=== PATIENT | female | born 1955 | race Caucasian/White ===

== ENCOUNTER → 2016-09-12 | Outpatient (CLI) | payer BC ==
--- NOTE | 2016-09-12 08:38 | BD ---
EXAMINATION TYPE: MG DEXA axial skeleton. DATE OF EXAM: 09/12/2016 COMPARISON: Previous study dated 07/02/2014. CLINICAL HISTORY: Postmenopausal female. Height: 63.2 IN Weight: 197 LBS FRAX RISK QUESTIONS: Alcohol (3 or more units per day): NO Family History (Parent hip fracture): NO Glucocorticoids (More than 3mos): NO (Ex: prednisone, prednisolone, methylprednisolone, dexamethasone, and hydrocortisone). History of Fracture in Adulthood: NO Secondary Osteoporosis: 1. Type 1 Diabetes: NO 2. Hyperthyroidism: NO 3. Menopause before 45: NO 4. Malnutrition: NO 5. Chronic liver disease: NO Rheumatoid Arthritis: NO Current Tobacco Use: NO RISK FACTORS HISTORY OF: Active: YES Diet low in dairy products/other sources of calcium: YES Postmenopausal woman: AGE 49 MEDICATIONS: Thyroid Medications: YES Which medication: Levothyroxine How Lon+ YRS Additional Medications: CALCIUM, VIT D, LEVOTHYROXINE, EXAM MEASUREMENTS: Bone mineral densitometry was performed using the [employer] System. Bone mineral density as measured about the Lumbar spine is: ----- L1-L4(G/cm2): 1.136 T Score Values are as follows: ----- L2: -0.9 ----- L3: -0.3 ----- L4: -0.7 ----- L1-L4: -0.4 Bone mineral density has: Decreased -2.5% since study of: 07/02/2014 Bone mineral density about the R hip (g/cm2): 0.905 Bone mineral density about the L hip (g/cm2): 0.829 T Score values are as follows: -----R Neck: -1.0 -----L Neck: -1.5 -----R Total: -0.8 -----L Total: -1.3 Bone mineral density has: Decreased -2.0% since study of: 07/02/2014 IMPRESSION: OSTEOPENIA. Major osteoporotic fracture risk: 7.9%. Hip fracture risk: 0.7%. NOTE: T-SCORE=SD OF THE YOUNG ADULT MEAN.
--- NOTE | 2016-09-13 09:38 | MM ---
Reason for exam: screening (asymptomatic). Last mammogram was performed 2 years and 2 months ago. History: Patient is postmenopausal. Benign left mammotome panel of the left breast, June 05, 2012. Took estrogen for 2 months beginning at age 53. Took progesterone for 2 months beginning at age 53. Physical Findings: A clinical breast exam by your physician is recommended on an annual basis and results should be correlated with mammographic findings. MG Screening Mammo w CAD Bilateral CC and MLO view(s) were taken. Prior study comparison: July 02, 2014, bilateral MG screening mammo w CAD. June 23, 2013, bilateral digital screening mammo w/CAD. The breast tissue is heterogeneously dense. This may lower the sensitivity of mammography. Finding: There are a few typically benign round calcifications in both breasts. Previous mammotome biopsy in the left breast. There is no discrete abnormality. ASSESSMENT: Benign, BI-RAD 2 RECOMMENDATION: Routine screening mammogram of both breasts in 1 year.
== END | disposition home or self-care (01) ==
LOC: RADMAMWWP 07:37
PROVIDERS: ATTEND Obstetrics & Gynecology
DX: Z12.31 Encounter for screening mammogram for malignant neoplasm of breast (principal); M85.80 Other specified disorders of bone density and structure, unspecified site
CPT/HCPCS: 77080; G0202

== ENCOUNTER 2017-06-21 10:49 | Day surgery (SDC) | payer BC ==
[2017-06-19 16:08] VITALS: BMI 33.5
[~2017-06-21 10:49] MED LIST: LACTATED RINGERS 1,000 ML IV SCH; LIDOCAINE 1% 20 ML VIAL (10MG/ML) FOR IV START INTRADERMA PRN
[2017-06-21 12:23] VITALS: RESP 16; TEMP 98.6
[2017-06-21] MEDS ORDERED: PROPOFOL 10 MG/ML 20 ML VIAL IV ONE (13:06)
--- NOTE | 2017-06-21 13:22 | P.PCN ---
Date of Procedure: 06/21/17 Procedure(s) Performed: BRIEF HISTORY: Patient is a 61-year-old pleasant white female, scheduled for an elective colonoscopy as a part of screening for colorectal neoplasia. PROCEDURE PERFORMED: Colonoscopy. PREOPERATIVE DIAGNOSIS: Screening for colon cancer. IV sedation per Anesthesia. PROCEDURE: After informed consent was obtained, the patient, was brought into the endoscopy unit. IV sedation was administered by Anesthesia under continuous monitoring. Digital rectal examination was normal. Initially the Olympus CF- 160 flexible video colonoscope was then inserted in the rectum, gradually advanced into the cecum without any difficulty. Careful examination was performed as the scope was gradually being withdrawn. Ileocecal valve and the appendiceal orifice were visualized and appeared normal. Prep was excellent. Mucosa of the cecum, ascending colon, transverse colon, descending colon, sigmoid colon, and rectum appeared normal. scattered ascending diverticulosis seen. Retroflexion was performed in the rectum and no lesions were seen. The patient tolerated the procedure well. IMPRESSION: Normal-appearing colon from rectum to cecum with no evidence of colorectal neoplasia . Scattered left-sided diverticulosis. RECOMMENDATIONS: Findings of this examination were discussed with the patient as well as her family. She was advised to have a repeat screening colonoscopy in 10 years.
[2017-06-21 13:42] VITALS: BP 105/68; PULSE 75
== END 2017-06-21 14:23 | disposition home or self-care (01) ==
LOC: ORWHC2ENDO 10:49
PROVIDERS: ATTEND Internal Medicine Gastroenterology
DX: Z12.11 Encounter for screening for malignant neoplasm of colon (principal); K57.30 Diverticulosis of large intestine without perforation or abscess without bleeding; E07.9 Disorder of thyroid, unspecified; Z79.899 Other long term (current) drug therapy
CPT/HCPCS: 45378; J2704

== ENCOUNTER → 2017-11-12 | Outpatient (CLI) | payer BC ==
--- NOTE | 2017-11-13 14:04 | MM ---
Reason for exam: screening (asymptomatic). Last mammogram was performed 1 year and 2 months ago. History: Patient is postmenopausal. Benign left mammotome panel of the left breast, June 05, 2012. Took estrogen for 2 months beginning at age 53. Took progesterone for 2 months beginning at age 53. Physical Findings: A clinical breast exam by your physician is recommended on an annual basis and results should be correlated with mammographic findings. MG 3D Screening Mammo W/Cad Bilateral CC and MLO view(s) were taken. Prior study comparison: September 12, 2016, bilateral MG screening mammo w CAD. July 02, 2014, bilateral MG screening mammo w CAD. There are scattered fibroglandular densities. Asymmetric breast tissue in the right breast, 9cm from nipple. This finding is changed when compared with previous exams. ASSESSMENT: Incomplete: need additional imaging evaluation, BI-RAD 0 RECOMMENDATION: Ultrasound of the right breast. [facility] will attempt to contact patient to return for ultrasound.
== END | disposition home or self-care (01) ==
LOC: RADMAMWWP 11:02
PROVIDERS: ATTEND Obstetrics & Gynecology
DX: Z12.31 Encounter for screening mammogram for malignant neoplasm of breast (principal)
CPT/HCPCS: 77063; 77067

== ENCOUNTER → 2017-11-16 | Outpatient (CLI) | payer BC ==
--- NOTE | 2017-11-19 08:40 | USB ---
Reason for exam: additional evaluation requested from abnormal screening. History: Patient is postmenopausal. Benign left mammotome panel of the left breast, June 05, 2012. Took estrogen for 2 months beginning at age 53. Took progesterone for 2 months beginning at age 53. Physical Findings: Nurse did not find any significant physical abnormalities on exam. US Breast Workup RT Right complete breast ultrasound includes all four quadrants, the retroareolar region and axilla. Finding demonstrates a 0.6 x 0.3 x 0.8cm hypoechoic lesion at 11 o'clock. These results were verbally communicated with the patient and result sheet given to the patient on 11/16/17. ASSESSMENT: Incomplete: need additional imaging evaluation, BI-RAD 0 RECOMMENDATION: Special view mammogram of the right breast.
--- NOTE | 2017-11-19 08:41 | MM ---
Reason for exam: additional evaluation requested from abnormal screening. Last mammogram was performed less than 1 month ago. History: Patient is postmenopausal. Benign left mammotome panel of the left breast, June 05, 2012. Took estrogen for 2 months beginning at age 53. Took progesterone for 2 months beginning at age 53. MG Work Up Mamm w CAD RT Spot compression CC, spot compression MLO, and LM view(s) were taken of the right breast. Prior study comparison: November 12, 2017, bilateral MG 3d screening mammo w/cad. September 12, 2016, bilateral MG screening mammo w CAD. Nodular density persists. These results were verbally communicated with the patient and result sheet given to the patient on 11/16/17. ASSESSMENT: Suspicious, BI-RAD 4 RECOMMENDATION: Stereotactic core biopsy of the right breast. Called Dr. Mckeon with mammographic findings and has scheduled an appointment for the patient for 11/28/17 at 3:[address] Garcia. PRELIMINARY REPORT CALLED AND FAXED TO DR. GARCIA ON 11/19/17.
== END | disposition home or self-care (01) ==
LOC: RADUSWWP 10:59
PROVIDERS: ATTEND Obstetrics & Gynecology
DX: R92.8 Other abnormal and inconclusive findings on diagnostic imaging of breast (principal)
CPT/HCPCS: 77065

== ENCOUNTER → 2017-12-13 | Day surgery (SDC) | payer BC ==
[2017-12-13 07:23] VITALS: BP 142/93; PULSE 81; RESP 16; TEMP 98; BMI 32.5
--- NOTE | 2017-12-13 09:29 | MM ---
EXAMINATION TYPE: MG discontinued stereo core RT DATE OF EXAM: 12/13/2017 COMPARISON: Mammogram and ultrasound November 16, 2017 and older studies. CLINICAL HISTORY: Prior abnormal mammogram. TECHNIQUE: Stereotactic guided core biopsy of right breast. FINDINGS: The procedure of stereotactic guided core biopsy was explained to the patient. Benefits, a lternatives, and risks were discussed. An informed consent was then obtained. Multiple attempts were obtained to localize the area of concern posterior depth upper outer aspect. T here is an asymmetrically prominent tissue at this level on multiple prior studies, the symphysis siz ed Three-D MLO view is most suspicious without definitive lesion seen on tomographic images are addit ional spot views. There is inability to localize definitive lesion today to warrant sampling. Procedu re was canceled. Case was discussed with patient prior to and during attempted procedure. Patient was agreeable to can cellation and short-term follow-up. IMPRESSION: Canceled stereotactic guided core biopsy due to inability to localize a definitive lesion for sampling. BI-RADS 3 probable benign findings. Recommendation: Precautionary diagnostic 6 month follow-up right breast mammogram.
== END ==
LOC: RADMAMWWP 06:55
PROVIDERS: ATTEND Student in an Organized Health Care Education/Training Program
DX: N64.9 Disorder of breast, unspecified (principal)

== ENCOUNTER → 2018-04-26 | Outpatient (CLI) | payer BC ==
--- NOTE | 2018-04-26 12:48 | XR ---
EXAMINATION TYPE: XR chest 2V DATE OF EXAM: 04/26/2018 COMPARISON: NONE HISTORY: Upper respiratory infection and cough. TECHNIQUE: Frontal and lateral views of the chest are obtained. FINDINGS: There is no focal air space opacity, pleural effusion, or pneumothorax seen. The cardiac silhouette size is within normal limits. The osseous structures are intact. Cholecystectomy clips a re noted on lateral view. IMPRESSION: No suspicious acute pulmonary process.
== END | disposition home or self-care (01) ==
LOC: RADXRMAIN 12:12
PROVIDERS: ATTEND Internal Medicine Geriatric Medicine
DX: J06.9 Acute upper respiratory infection, unspecified (principal); R92.8 Other abnormal and inconclusive findings on diagnostic imaging of breast
CPT/HCPCS: 71046

== ENCOUNTER → 2019-01-23 | Outpatient (CLI) | payer BC ==
--- NOTE | 2019-01-24 07:53 | BD ---
EXAMINATION TYPE: Axial Bone Density DATE OF EXAM: 01/23/2019 COMPARISON: 2017 CLINICAL HISTORY: M 88.9 Height: 5 FT 2 1/2 IN Weight: 190 FRAX RISK QUESTIONS: History of Fracture in Adulthood: YES Secondary Osteoporosis: RISK FACTORS HISTORY OF: Surgery to Spine/Hip(right/left)/Wrist (right/left): CYST REMOVED RT WRIST When: EARLY 19 Active: SOMEWHAT Postmenopausal woman: AGE 49 MEDICATIONS: Thyroid Medications: YES Which medication: LEVOTHYROXINE How Long: APPROX 20 YEARS Additional Medications: LEVOTHYROXINE, Additional History: EXAM MEASUREMENTS: Bone mineral densitometry was performed using the [employer] System. Bone mineral density as measured about the Lumbar spine is: ----- L1-L4(G/cm2): 1.150 T Score Values are as follows: ----- L2: -0.9 ----- L3: 0.1 ----- L4: .07 ----- L1-L4: -0.3 Bone mineral density has: INCREASED 1.0% SINCE STUDY OF 2017 Bone mineral density about the R hip (g/cm2): 0.902 Bone mineral density about the L hip (g/cm2): 0.850 T Score values are as follows: -----R Neck: -1.0 -----L Neck: -1.4 -----R Total: -1.3 -----L Total: -1.4 Bone mineral density has: DECREASED -3.6 % SINCE STUDY OF 2016 IMPRESSION: Osteopenia (T Score between -2.5 and -1). There is slightly increased risk of fracture and the patient may be considered for treatment. Re-Screen 2-5 years. NOTE: T-SCORE=SD OF THE YOUNG ADULT MEAN.
--- NOTE | 2019-01-24 13:41 | MM ---
Reason for exam: screening (asymptomatic). Last mammogram was performed 1 year and 2 months ago. History: Patient is postmenopausal. MG discontinued stereo core RT of the right breast, December 13, 2017. Benign left mammotome panel of the left breast, June 05, 2012. Took estrogen for 2 months beginning at age 53. Took progesterone for 2 months beginning at age 53. Physical Findings: A clinical breast exam by your physician is recommended on an annual basis and results should be correlated with mammographic findings. MG 3D Screening Mammo W/Cad Bilateral CC and MLO view(s) were taken. Prior study comparison: November 16, 2017, right breast MG work up mamm w CAD RT. November 12, 2017, bilateral MG 3d screening mammo w/cad. No significant changes when compared with prior studies. ASSESSMENT: Benign, BI-RAD 2 RECOMMENDATION: Routine screening mammogram of both breasts in 1 year.
== END | disposition home or self-care (01) ==
LOC: RADMAMWWP 15:42
PROVIDERS: ATTEND Obstetrics & Gynecology
DX: Z12.31 Encounter for screening mammogram for malignant neoplasm of breast (principal); M85.80 Other specified disorders of bone density and structure, unspecified site
CPT/HCPCS: 77063; 77067; 77080

== ENCOUNTER → 2019-03-17 | Outpatient (CLI) | payer BC ==
[2019-03-17 11:34] LABS: T4, Free (Free Thyroxine) 1.2 ng/dL (0.80-1.80)
== END | disposition home or self-care (01) ==
LOC: LABWHC1 06:54
PROVIDERS: ATTEND Nurse Practitioner Family
DX: E03.9 Hypothyroidism, unspecified (principal)
CPT/HCPCS: 36415; 84439; 84443

== ENCOUNTER → 2019-03-17 | Outpatient (CLI) | payer BC ==
[2019-03-17 07:41] LABS: HGB 13.2 gm/dL (11.4-16.0); MCH 28.8 pg (25.0-35.0); MCV 87.2 fL (80.0-100.0); Mean Platelet Volume 6.9; Platelet Count 227 k/uL (150-450); RBC 4.59 m/uL (3.80-5.40); RDW 13.6 % (11.5-15.5); WBC 5.4 k/uL (3.8-10.6)
[2019-03-17 07:48] LABS: INR 0.9 (<1.2); Partial Thromboplastin Time 25.8 sec (22.0-30.0); Prothrombin Time 9.7 sec (9.0-12.0)
[2019-03-17 07:54] LABS: ALT 16 U/L (4-34); AST 23 U/L (14-36); African American GFR (CKD) >90 (>60 ml/min/1.73 sqM); Albumin 4.1 g/dL (3.5-5.0); Alkaline Phosphatase 79 U/L (38-126); Anion Gap 8 mmol/L; Blood Urea Nitrogen 13 mg/dL (7-17); Calcium 9.7 mg/dL (8.4-10.2); Carbon Dioxide 25 mmol/L (22-30); Chloride 109 mmol/L (98-107); Glucose 99 mg/dL (74-99); Non-African American GFR(CKD) >90 (>60 ml/min/1.73 sqM); Potassium 4.4 mmol/L (3.5-5.1); Sodium 142 mmol/L (137-145); Total Bilirubin 0.6 mg/dL (0.2-1.3)
[2019-03-17 08:15] LABS: Appearance,Urine Cloudy (Clear); Bacteria,Urine Occasional /hpf; Bilirubin,Urine Negative (Negative); Blood,Urine Small (Negative); Color,Urine Yellow; Glucose,Urine (UA) Negative (Negative); Ketones,Urine Negative (Negative); Leukocyte Esterase,Urine Negative (Negative); Mucus,Urine Many /hpf; Nitrite,Urine Negative (Negative); Protein,Urine Trace (Negative); RBC,Urine 1 /hpf (0-5); Specific Gravity,Urine 1.022 (1.001-1.035); Squamous Epithelial Cell,Urine 29 /hpf (0-4); Urobilinogen,Urine <2.0 mg/dL (<2.0); WBC,Urine 1 /hpf (0-5)
== END | disposition home or self-care (01) ==
LOC: LABPAT 06:48
PROVIDERS: ATTEND Orthopaedic Surgery Sports Medicine
DX: Z01.812 Encounter for preprocedural laboratory examination (principal)
CPT/HCPCS: 80053; 81001; 85027; 85610; 85730; 87070

== ENCOUNTER 2019-04-02 11:46 | Inpatient (IN) | payer BC ==
[2019-03-31 15:20] VITALS: BMI 33.3
[~2019-04-02 11:46] MED LIST changes: +ACETAMINOPHEN TAB 500 MG TAB PO ONE; +DEXAMETHASONE SOD PHOSPHATE 10 MG/ML 1 ML VIAL IV ONE; +HYDROmorphone 0.5 MG/0.5 ML SYRINGE IVP PRN; -LACTATED RINGERS 1,000 ML IV SCH; +MELOXICAM 7.5 MG TAB PO ONE; +ONDANSETRON 4 MG/2 ML VIAL IVP ONE; +TRANEXAMIC ACID 1,000 MG in SODIUM CHLORIDE 0.9% 100 ML IVPB ONE; +fentaNYL (PF) 50 MCG/ML 2 ML AMP IVP PRN
[2019-04-02] MEDS: LACTATED RINGERS 1,000 ML IV SCH ×2 (12:37→20:50)
[2019-04-02] MEDS: MIDAZOLAM 2 MG/2 ML VIAL IV PRN ×2 (12:37→13:14)
[2019-04-02] MEDS ORDERED: fentaNYL (PF) 50 MCG/ML 2 ML AMP IV ONE (13:20)
[2019-04-02] MEDS ORDERED: HYDROmorphone 0.5 MG/0.5 ML SYRINGE IVP PRN ×2 (13:36)
[2019-04-02] MEDS ORDERED: NALOXONE 0.4 MG/ML 1 ML VIAL IV PRN (13:36)
[2019-04-02] MEDS ORDERED: NA PHOS,M-B/NA PHOS,DI-BA 133 ML ENEMA RECTAL PRN (13:36)
[2019-04-02] MEDS ORDERED: DIAZEPAM 5 MG TAB PO PRN (13:36)
[2019-04-02] MEDS ORDERED: traMADol 50 MG TAB PO PRN (13:36)
[2019-04-02] MEDS ORDERED: TEMAZEPAM 15 MG CAP PO PRN (13:36)
[2019-04-02] MEDS ORDERED: BISACODYL 10 MG SUPP RECTAL PRN (13:36)
[2019-04-02] MEDS ORDERED: ACETAMINOPHEN TAB 325 MG TAB PO PRN (13:36)
[2019-04-02] MEDS ORDERED: MAGNESIUM HYDROXIDE 2,400 MG/10 ML CUP PO PRN (13:36)
[2019-04-02] MEDS ORDERED: ROPIVACAINE 0.2%-NS ON-Q PUMP 1,090 MG, EMPTY PAIN BALL 1 EACH MISCELLANE PRN (13:45)
--- NOTE | 2019-04-02 13:46 | P.ANPRN ---
Procedure Note - Anesthesia - Nerve Block Performed Right Adductor Canal Infusion Time Out Performed: Yes Date of Procedure: 04/02/19 Procedure Start Time: 13:14 Procedure Stop Time: 13:35 Location of Patient: PreOp Indication: Acute Post-Operative Pain, Requested by Surgeon Sedation Type: Sedate with meaningful contact maintained Preparation: Sterile Prep, Sterile Dressing Position: Supine Catheter: Indwelling Needle Types: Pajunk Needle Gauge: 21 Ultrasound used to visualize needle placement: Yes Ultrasound used to observe medication spread: Yes Blood Aspirated: No Pain Paresthesia on Injection Noted: No Resistance on Injection: Normal Image Stored and Saved: Yes Events: Uneventful and Well Tolerated (ropi .5% 40cc plus dexamethasone 4mg)
[2019-04-02] MEDS ORDERED: MIDAZOLAM 2 MG/2 ML VIAL ONE (14:09)
[2019-04-02] MEDS ORDERED: PROPOFOL 10 MG/ML 20 ML VIAL IV ONE (14:09)
[2019-04-02] MEDS ORDERED: fentaNYL (PF) 50 MCG/ML 2 ML AMP ONE (14:09)
[2019-04-02] MEDS ORDERED: PHENYLEPHRINE-0.9% NACL SYG 1 MG/10 ML SYRINGE ONE (14:09)
[2019-04-02] MEDS ORDERED: ROPIVACAINE 246.25 MG, EPINEPHrine 0.5 MG, KETOROLAC 30 MG, cloNIDine HCL/PF 80 MCG, WA... MISCELLANE ONE ×5 (14:24)
[2019-04-02] MEDS ORDERED: ceFAZolin 3,000 MG in SODIUM CHLORIDE 0.9% IRRIGATIO 3,000 ML IRRIGATION ONE (14:45)
[2019-04-02] MEDS ORDERED: LACTATED RINGERS 1,000 ML IV ONE (14:47)
--- NOTE | 2019-04-02 18:14 | XR ---
EXAMINATION TYPE: XR knee limited RT DATE OF EXAM: 04/02/2019 COMPARISON: NONE HISTORY: Postop knee surgery TECHNIQUE: 2 views FINDINGS: There is right knee prosthesis. Components are in anatomic position. IMPRESSION: No complicating process seen.
[2019-04-02] MEDS: ONDANSETRON 4 MG/2 ML VIAL IVP PRN (20:50)
[2019-04-02] MEDS: SENNOSIDES-DOCUSATE SODIUM 1 EACH TAB PO SCH (21:21)
[2019-04-02] MEDS: ASPIRIN 325 MG TAB PO SCH (21:21)
[2019-04-02] MEDS: HYDROmorphone 1 MG/ML 1 ML SYRINGE IVP PRN (21:21)
[2019-04-02] MEDS: HYDROcodone/APAP 10-325MG 1 EACH TAB PO PRN (23:55)
[2019-04-03] MEDS: LACTATED RINGERS 1,000 ML IV SCH ×4 (00:21→22:21)
[2019-04-03] MEDS: HYDROmorphone 1 MG/ML 1 ML SYRINGE IVP PRN (03:11)
[2019-04-03] MEDS: LEVOTHYROXINE 125 MCG TAB PO SCH (05:32)
[2019-04-03] MEDS: ONDANSETRON 4 MG/2 ML VIAL IVP PRN (05:32)
[2019-04-03] MEDS ORDERED: SODIUM CHLORIDE 0.9% 500 ML 500 ML IV ONE (06:16)
[2019-04-03] MEDS ORDERED: LEVOTHYROXINE 125 MCG TAB PO SCH (06:30)
--- NOTE | 2019-04-03 06:59 | P.PN ---
Progress Note - Text Progress Note Date: 04/03/19 Postoperative day # 1 status post total knee arthroplasty, under spinal anesthesia, and adductor canal catheter placed for postoperative analgesia, currently at ropivacaine 0.2% 8 mL per hour and continuous infusion, visual analogue scale is 3/10, patient using oral pain medication for breakthrough pain. Assessment and plan= Acute postoperative pain, adductor canal catheter for pain control, pain is well controlled we'll continue the same management.
[2019-04-03 07:25] LABS: Basophils % (A) 0 %; Eosinophils % (A) 0 %; Lymphocytes # (A) 0.8 k/uL (1.0-4.8); Lymphocytes % (A) 7 %; MCHC 33.4 g/dL (31.0-37.0); MCV 89.6 fL (80.0-100.0); Mean Platelet Volume 7.4; Monocytes # (A) 0.5 k/uL (0-1.0); Monocytes % (A) 4 %; Neutrophils # (A) 9.3 k/uL (1.3-7.7); Neutrophils % (A) 87 %; Platelet Count 183 k/uL (150-450); RBC 3.35 m/uL (3.80-5.40); RDW 13.7 % (11.5-15.5); WBC 10.7 k/uL (3.8-10.6)
[2019-04-03] MEDS: ASPIRIN 325 MG TAB PO SCH ×2 (08:06→19:26)
[2019-04-03] MEDS: HYDROcodone/APAP 10-325MG 1 EACH TAB PO PRN ×2 (08:06→19:26)
[2019-04-03] MEDS: HYDROcodone/APAP 5-325MG 1 EACH TAB PO PRN ×2 (08:16→14:48)
--- NOTE | 2019-04-03 08:35 | OP ---
OPERATIVE REPORT DATE OF PROCEDURE: 04/02/2019 SURGEON: Doron Garrett MD BEHAVIORAL INTERVENTION SPECIALIST: Grant FORDE PREOPERATIVE DIAGNOSIS: Right knee osteoarthrosis. POSTOPERATIVE DIAGNOSIS: Right knee osteoarthrosis. OPERATION: Right total knee arthroplasty. ANESTHESIA: Spinal with sedation. ESTIMATED BLOOD LOSS: 100 mL. TOURNIQUET TIME: 42 minutes at 250 mmHg. COMPLICATIONS: None apparent. DRAINS: None. DISPOSITION: Postanesthesia care unit. INDICATIONS: Sabrina is a very pleasant 63-year-old female with longstanding history of right knee pain. History and physical examination are consist with advanced right knee osteoarthrosis. She has been through significant nonoperative management at this point. Further treatment options were discussed and she decided to go forward with a right total knee arthroplasty. The risks of procedure were discussed with her in detail. These risks include, but are not limited to risk of infection, nerve damage, bleeding, pain and risk of deep vein thrombosis which could lead to fatal pulmonary embolism. There is also risk of loosening of the implant which could require revision operation. The patient understands these risks. All of her questions were answered to her satisfaction. Appropriate informed consent was obtained. DESCRIPTION OF THE PROCEDURE: Patient identified in the preoperative holding area. Surgical site was marked by both the patient and myself. She was given 2 g of Ancef IV for prophylactic purposes. She was then transferred to the operative suite. She was placed supine on the operative table. Spinal anesthetic was then administered and dosed per the Anesthesia Department without apparent complication. Examination under anesthesia was then performed. The patient was 2-3 degrees shy of full extension. She had 100 degrees of flexion. The medial collateral ligament, lateral collateral ligament and posterior cruciate ligaments were stable. Tourniquet was then placed high on the right upper thigh, well-padded in preparation for surgery. The patient's right lower extremity was then prepped and draped in usual sterile fashion. A standard surgical pause was undertaken to ensure that we were operating on the correct site and that appropriate preoperative antibiotics have been given. All staff were in agreement. We proceeded. The outlines of the patella marked with a surgical pen. A planned 12 cm vertical incision centered over the patella was marked with a surgical pen. Leg was then exsanguinated with an Esmarch dressing. The knee was then flexed and the tourniquet was inflated to 250 mmHg. The total tourniquet time for the procedure was 42 minutes Incision was then made with a 10 blade scalpel. Dissection carried down sharply to overlying fascia. Great care was taken to minimize the skin flaps. The knee was then exposed using a standard medial parapatellar approach. A small cuff of quadriceps tendon was then left for suturing. She was in a bit of varus preoperatively. A standard medial release was then made. Superficial medial collateral ligament dissected off the bone around the posterior aspect of the proximal tibia. The medial meniscus was then excised as well. The lateral meniscus was also released anteriorly. The leg was then externally rotated. The patella was everted. The knee was flexed. Retractors were then placed to protect the collateral ligaments. I then proceeded to remove the infrapatellar fat pad. This was excised sharply tangentially with fibers of the patellar tendon. I then proceeded to remove peripheral osteophytes. This is done with a rongeur. I then proceeded with the distal femoral resection. She did have near full extension. A planned 9 mm resection was then done. The femoral canal was then entered in midline of the femur approximately 10 mm anterior to the origin of the posterior cruciate ligament. The hector was then advanced down the center of the femur and placed intramedullary. Based on the preoperative radiographs, the angle between the anatomic and mechanical axis of the femur was approximately 4-5 degrees. The valgus angle of this femoral cutting guide was then set at 4 degrees for the right knee. The distal femoral cutting guide was then advanced over the intramedullary hector. This was seated firmly against the femur. I then as mentioned planned to take 9 mm off the distal femur. The cutting blocks then secured onto the femur with pins. The jig was then removed. The distal femoral cut was made through the slot of the block. The pins were then removed. The distal femoral cutting block was removed. The accuracy of the distal femoral cuts was checked with 2 flat bars. I then proceeded with femoral sizing. Posterior referencing sizing guide was held firmly against the resected distal surface of the femur. Posterior condyles were resting on the posterior plane of the guide. The sizing stylus was then placed onto the anterior femur. The size was measured as a size 6. I then assessed for femoral rotation. Plan was for 3 degrees external rotation. Three degrees of external rotation was placed onto the jig. These holes were then marked. I then confirmed the rotation by 3 separate methods. This is done using epicondylar axis as well as Whitesides line and posterior referencing. Deemed that the external rotation was proper. I then went forward placing the femoral cutting block. This was placed over the previously placed pin holes. The Asad wing was then placed on the anterior slots to ensure that we would not notch the anterior femur with the anterior femoral cut. I then proceed with the anterior femoral cut. This was flush with the anterior cortex of the femur. The posterior cuts were then made followed by the anterior chamfer cut, then the posterior chamfer cut. The cutting block was then removed. Throughout the resection, the collateral ligaments were protected with retractors. I then placed a trial size 6 femur. It fit very nice medial-lateral and fit flush with the distal end of the femur. The drill holes were then made. I then proceeded with the tibial cut. I planned for cruciate-retaining knee. The guide was placed and set for varus valgus and for slope. The height set for approximate 2 mm resection from the medial tibial plateau which was the lower side. I was happy with the alignment and amount of resection. The cutting block was then pinned to the proximal tibia. The alignment hector was removed. The proximal tibia was resected with a reciprocating saw. Again this was done with retractors protecting the collateral ligaments as well as the posterior cruciate ligament. I then proceeded to evaluate the flexion-extension gaps. A 10 mm block was then placed. The flexion-extension gaps were equal. I then proceeded with resection of posterior osteophytes. She had very minimal posterior osteophytes. This is done using a curved osteotome. This resected the posterior osteophytes and posterior capsule stripping was done off the posterior aspect of the femur at this time. The osteophytes were then removed. I then proceeded with resection of patella. The thickness of patella was measured using a caliper. The thickness was 22 mm. The thickness of the anticipated patellar dome was taken into account. The resection was then performed and confirmed to be equal in 4 quadrants using a caliper. Approximately 14 mm of bone remained after resection. A 29 x 8 standard patellar trial was then placed. The holes were drilled. The trial was then placed. I then proceeded with sizing the tibial plate. A size C tibial plate fit very nicely. I then placed the trial femur the tibial tray and patellar button. A 10 mm trial tibial insert was also placed. The components fit very nicely. She had full extension and flexion. The extension and flexion gaps were equal and stable to both varus and valgus stress. The patella tracked appropriately. The tibial tray rotation was then marked with a Bovie. This was externally rotated properly. I then proceed with tibial preparation. First drilled the femoral holes, removed femoral component. The tibial tray was then set for proper external rotation as well as mediolateral placement onto the tibia. It was then pinned into place. I then proceed with punching the keel. I then decided to proceed with cementing of all of our components. The knee was thoroughly irrigated with sterile saline solution via pulse lavage. The lateral geniculate artery was identified and cauterized. All blood was removed from the bone of the tibia femur and patella with pulse lavage. I then proceeded with cementing. Two packs of antibiotic bone cement prepared on the back table by the surgical first assistant. I then proceeded with cementing of the tibia first. The cement was impacted into the keel as well as deeply seated into the bone. A second coat cement was then placed. The tibia was then impacted into place. Excess cement was removed with Seagraves's and jokers. I then proceeded with cementing of the femoral component. The femoral component was also cemented using standard technique. Excess cement was removed. A 10 mm trial insert was then placed in the knee. It was brought into full extension with a constant axial load placed until the cement had hardened. The patellar component was then cemented. This was held firmly with a compressive device until the cement had dried. When the cement had dried, the knee was taken out of extension. All excess cement was removed from around the prosthesis. I then trialed the knee with a 10 mm insert. Flexion and extension gaps were appropriate. The knee was stable. I decided to go forward with a 10 mm cross-linked cruciate-retaining tibial insert. Polyethylene was then placed on the tray and locked into place. The knee was then reduced. The knee was again further irrigated with sterile saline solution with antibiotic added. The tourniquet was then deflated. Total tourniquet time for the procedure was 42 minutes at 250 mmHg. Final components were Valdez Persona size 6, cruciate-retaining femoral component size C, tibial tray, a 10 mm medial congruent cruciate-retaining polyethylene insert, and a 29 x 8 patella. I then proceeded with closure. Again, the knee was thoroughly irrigated. The quadriceps tendon and medial retinaculum were reapproximated with #2 Ethibond suture. The extensor mechanism was then closed with a running #2 Quill suture. Subcutaneous tissues were then closed with 2-0 Vicryl interrupted suture. The skin was closed with a running 3-0 Quill suture. Dermabond was applied to the incision. Sterile compressive dressing was then applied. All sponge and needle counts were deemed correct prior to closure. The patient tolerated procedure without apparent complication. She was transferred to the recovery room in stable condition. MMODL / IJN: [id number] /
--- NOTE | 2019-04-03 14:11 | P.PN ---
Subjective Progress Note Date: 04/03/19 Principal diagnosis: Right TKA Patient is seen at bedside this morning. She is postop day #1 from right total knee arthroplasty. She has pain at the surgical site as expected but denies any new complaints. She denies numbness, tingling or calf pain. Review of systems is negative for fever, chills, chest pain, shortness of breath or other Objective - Vital Signs Vital signs: Vital Signs Temp 98.4 F 04/03/19 07:00 Pulse 67 04/03/19 07:00 Resp 12 04/03/19 07:00 BP 105/72 04/03/19 07:00 Pulse Ox 97 04/03/19 07:00 Intake & Output 04/02/19 04/03/19 04/03/19 18:59 06:59 18:59 Intake Total 1951 800 Output Total 100 200 Balance 1851 600 Weight 87.2 kg 87.2 kg Intake: IV 1950 Intake, IV Titration 800 Amount Lactated Ringers 1,000 ml 800 @ 100 mls/hr IV .Q10H DIPAK Rx#:[id number] Output: Urine 200 Estimated Blood Loss 100 Other: # Voids 1 - Exam Inspection reveals a benign surgical wound. There is no active bleeding or drainage. Neurovascular status is intact throughout the lower extremity with motor and sensation fully intact. Calf is soft and nontender. 2+ dorsalis pedis pulse and less than 2 second cap refill is present. - Constitutional General appearance: Present: no acute distress - Labs CBC & Chem 7: 04/03/19 06:54 Labs: Abnormal Lab Results - Last 24 Hours (Table) 04/03/19 Range/Units 06:54 WBC 10.7 H (3.8-10.6) k/uL RBC 3.35 L (3.80-5.40) m/uL Hgb 10.0 L D (11.4-16.0) gm/dL Hct 30.0 L (34.0-46.0) % Neutrophils # 9.3 H (1.3-7.7) k/uL Lymphocytes # 0.8 L (1.0-4.8) k/uL Assessment and Plan (1) Status post total right knee replacement Narrative/Plan: She will continue with routine postop orthopedic protocol including pain managem ent, wound care, PT, DVT prophylaxis and medical management. Expect that she will transfer to home tomorrow Current Visit: Yes Status: Acute Priority: Medium Code(s): Z96.651 - PRESENCE OF RIGHT ARTIFICIAL KNEE JOINT SNOMED Code(s): 6324398227387 Time with Patient: Less than 30
[2019-04-03] MEDS: SENNOSIDES-DOCUSATE SODIUM 1 EACH TAB PO SCH (19:26)
[2019-04-04] MEDS: ONDANSETRON 4 MG/2 ML VIAL IVP PRN (00:07)
[2019-04-04] MEDS: HYDROmorphone 1 MG/ML 1 ML SYRINGE IVP PRN ×2 (00:07→08:18)
[2019-04-04] MEDS: HYDROcodone/APAP 10-325MG 1 EACH TAB PO PRN ×3 (04:53→17:12)
[2019-04-04] MEDS: LEVOTHYROXINE 125 MCG TAB PO SCH (04:54)
[2019-04-04] MEDS: LACTATED RINGERS 1,000 ML IV SCH ×3 (06:04→20:28)
[2019-04-04] MEDS: ASPIRIN 325 MG TAB PO SCH ×2 (08:18→21:28)
[2019-04-04] MEDS: MULTIVITAMINS, THERA 1 EACH TAB PO SCH (08:19)
--- NOTE | 2019-04-04 09:31 | P.CONS ---
History of Present Illness - Reason for Consult Consult date: 04/02/19 Medical management post Right TKA. Requesting physician: Doron Garrett - Chief Complaint post right TKA. - History of Present Illness This is a 63-year-old female one of Dr. Centeno with a previous medical history significant for hypothyroidism as well as ostial arthritis underwent right total knee arthroplasty that was done successfully by Dr. Garrett and we were asked to see the patient for medical management. Patient is sitting up in bed in no apparent distress she denies any chest pain, shortness breath she has no abdominal pain, she denies any nausea or vomiting. Review of Systems Constitutional: Denies anorexia, Denies chronic headaches, Denies malaise, Denies weakness, Denies weight gain Eyes: denies blurred vision, denies bulging eye Ears: deny: decreased hearing Ears, nose, mouth and throat: Denies dysphagia, Denies neck lump, Denies sore throat Cardiovascular: Denies chest pain, Denies claudication, Denies decreased exercise tolerance, Denies leg edema, Denies rapid heart beat, Denies shortness of breath, Denies syncope Respiratory: Denies congestion, Denies cough with sputum, Denies home oxygen, Denies sleep apnea, Denies snoring, Denies wheezing Gastrointestinal: Denies abdominal pain, Denies BRBPR, Denies change in bowel habits, Denies excessive gas, Denies loss of appetite, Denies melena, Denies nausea, Denies vomiting Genitourinary: Denies dysuria, Denies hematuria Musculoskeletal: Denies myalgias Musculoskeletal: right: knee pain, knee stiffness, absent: ankle pain, ankle stiffness, ankle swelling, elbow pain, elbow stiffness, elbow swelling, foot pain, foot stiffness, foot swelling, hand pain, hand stiffness, hand swelling, hip pain, hip stiffness, hip swelling, knee swelling, shoulder pain, shoulder stiffness, shoulder swelling, wrist pain, wrist stiffness, wrist swelling Integumentary: Denies pruritus, Denies rash Neurological: Denies numbness, Denies weakness Psychiatric: Denies anxiety, Denies depression Endocrine: Denies fatigue, Denies weight change Past Medical History Past Medical History: Osteoarthritis (OA), Thyroid Disorder Additional Past Medical History / Comment(s): . History of Any Multi-Drug Resistant Organisms: None Reported Past Surgical History: Section, Cholecystectomy, Orthopedic Surgery Additional Past Surgical History / Comment(s): ganglion cyst removed, colonoscopy, tear duct surg. right eye x 2, left breat biopsy Past Anesthesia/Blood Transfusion Reactions: Previous Problems w/ Anesthesia, Postoperative Nausea & Vomiting (PONV) Additional Past Anesthesia/Blood Transfusion Reaction / Comm: "woke up during twilight anesthesia" Past Psychological History: No Psychological Hx Reported Smoking Status: Never smoker Past Alcohol Use History: Occasional Past Drug Use History: None Reported - Past Family History Father Family Medical History: Cancer (Father at age of 74 from esophageal cancer he also felt off the back of the truck with significant injury.) Mother Family Medical History: Coronary Artery Disease (CAD) (Mother is 84-year-old with a history of aortic valve replacement.) Brother(s) Family Medical History: No Reported History (Patient has one brother no major medical problems .) Sister(s) Family Medical History: Diabetes Mellitus (Patient has 4 sisters one of them with diabetes mellitus type 2.) Son(s) Family Medical History: No Reported History (Patient has 2 sons no major medical problems.) Medications and Allergies Home Medications Medication Instructions Recorded Confirmed Type Levothyroxine Sodium [Synthroid] 125 mcg PO DAILY 06/19/17 04/02/19 History Allergies Allergy/AdvReac Type Severity Reaction Status Date / Time No Known Allergies Allergy Verified 03/31/19 15:12 Physical Exam Vitals: Vital Signs Temp Pulse Pulse Resp BP Pulse Ox 04/02/19 18:15 98.3 F 85 18 118/78 97 04/02/19 17:33 84 18 115/70 96 04/02/19 17:17 84 18 116/73 96 04/02/19 17:01 87 18 107/68 95 04/02/19 16:46 88 18 127/72 97 04/02/19 16:33 89 16 132/71 96 04/02/19 16:04 97.7 F 99 16 117/65 96 04/02/19 12:13 97.9 F 100 16 138/76 98 Intake and Output 04/02/19 04/02/19 04/02/19 06:59 14:59 22:59 Intake Total 1451 500 Output Total 100 Balance 1451 400 Intake: IV 1451 500 Output: Estimated Blood Loss 100 Other: Weight 87.2 kg 87.2 kg - Constitutional General appearance: average body habitus, no acute distress - EENT Eyes: anicteric sclerae, EOMI, PERRLA, no ptosis, normal appearance ENT: hearing grossly normal, NA/AT, normal oropharynx, no thrush Ears: bilateral: normal - Neck Neck: no lymphadenopathy, normal ROM, no rigidity, no stridor, no thyromegaly Carotids: bilateral: upstroke normal Thyroid: bilateral: normal size - Respiratory Respiratory: bilateral: CTA, negative: diminished, dullness, rales, rhonchi, wheezing, prolonged expiration, prolonged inspiration - Cardiovascular Rhythm: regular Heart sounds: normal: S1, S2 Abnormal Heart Sounds: no systolic murmur, no diastolic murmur, no S3 Gallop, no S4 Gallop - Gastrointestinal General gastrointestinal: normal bowel sounds, soft, no splenomegaly, no tenderness, no umbilical hernia, no ventral hernia - Integumentary Integumentary: normal, normal turgor - Neurologic Neurologic: CNII-XII intact - Musculoskeletal Musculoskeletal: strength equal bilaterally, right sided weakness - Psychiatric Psychiatric: A&O x's 3, appropriate affect, intact judgment & insight Results CBC & Chem 7: 04/03/19 06:54 Assessment and Plan Assessment: Assessment and plan: 1. Post operative day #0 status post right total knee arthroplasty. Patient was instructed to use the incentive spirometer to reduce the incidence of atelectasis and healthcare associated pneumonia. Continue with DVT prophylaxis, continue with the physical therapy and pain management as outlined by orthopedic surgery. 2. Hypothyroidism. Continue patient on Synthroid 125 g orally once every day. 3. Constipation. Continue current bowel care. 4. Osteoarthritis. Continue current pain management. 5. Post op acute blood loss anemia expected outcome of surgery. Monitor the patient's CBC keep her hemoglobin greater than 10. 6. DVT prophylaxis. Aspirin 325 mg orally twice every day. 7. Thank you for the consult we'll follow the patient with you.
--- NOTE | 2019-04-04 13:19 | P.PN ---
Subjective Progress Note Date: 04/04/19 This patient is a 63- year old female with a past medical of hypothyroidism that is status-post right total knee arthroplasty on 04/02/19. Today is post-operative day #2. The patient is examined bedside. She states her pain is currently uncontrolled, although she recently received [place]. She worked with physical therapy yesterday and is having minimal issues transferring with a walker. She has not had a bowel movement yet post-operatively, although she denies abdominal pain. She otherwise feels well. She denies chest pain, shortness of breath, vomiting, fevers, chills. Vital signs stable. Objective - Vital Signs Vital signs: Vital Signs Temp 98.8 F 04/04/19 07:25 Pulse 82 04/04/19 08:15 Resp 16 04/04/19 08:15 BP 129/85 04/04/19 07:25 Pulse Ox 95 04/04/19 00:39 Intake & Output 04/03/19 04/04/19 04/04/19 18:59 06:59 18:59 Other: Voiding Method Toilet # Voids 2 1 - Exam On examination, the patient is lying in bed in no apparent distress. She is a lert and orientated 3. On inspection of the right knee, there is a clean, dry, intact dressing in place of the anterior knee. Surgical incision appears benign, there is no active bleeding or drainage. No surrounding erythema, warmth. Right lower extremity is warm and well perfused with brisk refill. Motor and sensory appear to be intact on the right lower extremity. Calf is soft and nontender to palpation. - Labs CBC & Chem 7: 04/03/19 06:54 Assessment and Plan Assessment: Status-post right total knee arthroplasty 04/02/2019. Post operative day #2. Plan: - Weightbearing as tolerated on the right lower extremity. Up with assistance, up with a walker.Ice and elevate the right lower extremity to decrease pain and swelling. - Daily dressing changes. - Physical therapy for gait and balance training. - Continue pain management. - Aspirin for DVT prophylaxis. - 2 doses of postoperative antibiotics complete. - Appreciate internal medicine consultation for perioperative medical management. - Anticipate discharge home in the next 24 hours.
--- NOTE | 2019-04-04 15:35 | P.PN ---
Subjective Progress Note Date: 04/03/19 This is a 63-year-old female one of Dr. Centeno with a previous medical history significant for hypothyroidism as well as ostial arthritis underwent right total knee arthroplasty that was done successfully by Dr. Garrett and we were asked to see the patient for medical management. Patient is sitting up in bed in no apparent distress she denies any chest pain, shortness breath she has no abdominal pain, she denies any nausea or vomiting. 04/03: Patient was hypotensive earlier with a little lightheadedness. She is status post fluid resuscitation. She states her pain is tolerable. Adductor ca nal catheter in place for pain control. She has not had a bowel movement this point. Repeat lab work this morning shows white count of 10.7, hemoglobin 10.0. Patient is planning to return home with [facility]. Most likely she will be ready by tomorrow. Review of Systems Constitutional: Denies anorexia, Denies chronic headaches, Denies malaise, D enies weakness, Denies weight gain Eyes: denies blurred vision, denies bulging eye Ears: deny: decreased hearing Ears, nose, mouth and throat: Denies dysphagia, Denies neck lump, Denies sore throat Cardiovascular: Denies chest pain, Denies claudication, Denies decreased exercise tolerance, Denies leg edema, Denies rapid heart beat, Denies shortness of breath, Denies syncope Respiratory: Denies congestion, Denies cough with sputum, Denies home oxygen, Denies sleep apnea, Denies snoring, Denies wheezing Gastrointestinal: Denies abdominal pain, Denies BRBPR, Denies change in bowel habits, Denies excessive gas, Denies loss of appetite, Denies melena, Denies nausea, Denies vomiting Genitourinary: Denies dysuria, Denies hematuria Musculoskeletal: Denies myalgias Musculoskeletal: right: knee pain, knee stiffness, absent: ankle pain, ankle stiffness, ankle swelling, elbow pain, elbow stiffness, elbow swelling, foot pain, foot stiffness, foot swelling, hand pain, hand stiffness, hand swelling, hip pain, hip stiffness, hip swelling, knee swelling, shoulder pain, shoulder stiffness, shoulder swelling, wrist pain, wrist stiffness, wrist swelling Integumentary: Denies pruritus, Denies rash Neurological: Denies numbness, Denies weakness Psychiatric: Denies anxiety, Denies depression Endocrine: Denies fatigue, Denies weight change Objective - Vital Signs Vital signs: Vital Signs Temp 98.4 F 04/03/19 07:00 Pulse 67 04/03/19 07:00 Resp 12 04/03/19 07:00 BP 105/72 04/03/19 07:00 Pulse Ox 97 04/03/19 07:00 Intake & Output 04/02/19 04/03/19 04/03/19 18:59 06:59 18:59 Intake Total 1950 800 Output Total 100 200 Balance 1851 600 Weight 87.2 kg 87.2 kg Intake: IV 1950 Intake, IV Titration 800 Amount Lactated Ringers 1,000 ml 800 @ 100 mls/hr IV .Q10H DIPAK Rx#:[id number] Output: Urine 200 Estimated Blood Loss 100 Other: # Voids 1 - Exam - Constitutional General appearance: average body habitus, no acute distress - EENT Eyes: anicteric sclerae, EOMI, PERRLA, no ptosis, normal appearance ENT: hearing grossly normal, NA/AT, normal oropharynx, no thrush Ears: bilateral: normal - Neck Neck: no lymphadenopathy, normal ROM, no rigidity, no stridor, no thyromegaly Carotids: bilateral: upstroke normal Thyroid: bilateral: normal size - Respiratory Respiratory: bilateral: CTA, negative: diminished, dullness, rales, rhonchi, wheezing, prolonged expiration, prolonged inspiration - Cardiovascular Rhythm: regular Heart sounds: normal: S1, S2 Abnormal Heart Sounds: no systolic murmur, no diastolic murmur, no S3 Gallop, no S4 Gallop - Gastrointestinal General gastrointestinal: normal bowel sounds, soft, no splenomegaly, no tenderness, no umbilical hernia, no ventral hernia - Integumentary Integumentary: normal, normal turgor Dressing in place to the right knee with no breakthrough drainage or bleeding - Neurologic Neurologic: CNII-XII intact - Musculoskeletal Musculoskeletal: strength equal bilaterally, right sided weakness - Psychiatric Psychiatric: A&O x's 3, appropriate affect, intact judgment & insight - Labs CBC & Chem 7: 04/03/19 06:54 Labs: Abnormal Lab Results - Last 24 Hours (Table) 04/03/19 Range/Units 06:54 WBC 10.7 H (3.8-10.6) k/uL RBC 3.35 L (3.80-5.40) m/uL Hgb 10.0 L D (11.4-16.0) gm/dL Hct 30.0 L (34.0-46.0) % Neutrophils # 9.3 H (1.3-7.7) k/uL Lymphocytes # 0.8 L (1.0-4.8) k/uL Assessment and Plan Plan: 1. Post operative day #1 status post right total knee arthroplasty. Patient was instructed to use the incentive spirometer to reduce the incidence of atelectasis and healthcare associated pneumonia. Continue with DVT prophylaxis, continue with the physical therapy and pain management as outlined by orthopedic surgery. 2. Hypothyroidism. Continue patient on Synthroid 125 g orally once every day. 3. Constipation. Continue current bowel care. 4. Osteoarthritis. Continue current pain management. 5. Post op acute blood loss anemia expected outcome of surgery. Monitor the patient's CBC keep her hemoglobin greater than 10. 6. DVT prophylaxis. Aspirin 325 mg orally twice every day. Discharge plan: Home with [facility] Impression and plan of care have been directed as dictated by the signing wesley barron. Denise Okeefe nurse practitioner acting as scribe for signing physician.
--- NOTE | 2019-04-04 15:37 | P.PN ---
Subjective Progress Note Date: 04/04/19 This is a 63-year-old female one of Dr. Centeno with a previous medical history significant for hypothyroidism as well as ostial arthritis underwent right total knee arthroplasty that was done successfully by Dr. Garrett and we were asked to see the patient for medical management. Patient is sitting up in bed in no apparent distress she denies any chest pain, shortness breath she has no abdominal pain, she denies any nausea or vomiting. 04/03: Patient was hypotensive earlier with a little lightheadedness. She is status post fluid resuscitation. She states her pain is tolerable. Adductor ca nal catheter in place for pain control. She has not had a bowel movement this point. Repeat lab work this morning shows white count of 10.7, hemoglobin 10.0. Patient is planning to return home with [facility]. Most likely she will be ready by tomorrow. 04/04: Patient states that her pain has been hurting a lot less now in a #6 with medications. Patient states she feels a little lightheaded when sitting up. She is not eating very much. She has not had a bowel movement. She is urinat ing without difficulty. Abdomen slightly distended. She has not worked with physical therapy yet this morning. She is afebrile, heart rate 82, blood pressure 129/85, pulse ox 85% on room air. Review of Systems Constitutional: Denies anorexia, Denies chronic headaches, Denies malaise, Denies weakness, Denies weight gain Eyes: denies blurred vision, denies bulging eye Ears: deny: decreased hearing Ears, nose, mouth and throat: Denies dysphagia, Denies neck lump, Denies sore t hroat Cardiovascular: Denies chest pain, Denies claudication, Denies decreased exercise tolerance, Denies leg edema, Denies rapid heart beat, Denies shortness of breath, Denies syncope, reports lightheadedness Respiratory: Denies congestion, Denies cough with sputum, Denies home oxygen, Denies sleep apnea, Denies snoring, Denies wheezing Gastrointestinal: Denies abdominal pain, Denies BRBPR, Denies change in bowel habits, Denies excessive gas, Denies loss of appetite, Denies melena, Denies nausea, Denies vomiting Genitourinary: Denies dysuria, Denies hematuria Musculoskeletal: Denies myalgias Musculoskeletal: right: knee pain, knee stiffness, absent: ankle pain, ankle stiffness, ankle swelling, elbow pain, elbow stiffness, elbow swelling, foot pain, foot stiffness, foot swelling, hand pain, hand stiffness, hand swelling, hip pain, hip stiffness, hip swelling, knee swelling, shoulder pain, shoulder stiffness, shoulder swelling, wrist pain, wrist stiffness, wrist swelling Integumentary: Denies pruritus, Denies rash Neurological: Denies numbness, Denies weakness Psychiatric: Denies anxiety, Denies depression Endocrine: Denies fatigue, Denies weight change Objective - Vital Signs Vital signs: Vital Signs Temp 98.8 F 04/04/19 07:25 Pulse 82 04/04/19 08:15 Resp 16 04/04/19 08:15 BP 129/85 04/04/19 07:25 Pulse Ox 95 04/04/19 00:39 Intake & Output 04/03/19 04/04/19 04/04/19 18:59 06:59 18:59 Other: Voiding Method Toilet # Voids 2 1 - Exam - Constitutional General appearance: average body habitus, no acute distress, resting in bed - EENT Eyes: anicteric sclerae, EOMI, PERRLA, no ptosis, normal appearance ENT: hearing grossly normal, NA/AT, normal oropharynx, no thrush Ears: bilateral: normal - Neck Neck: no lymphadenopathy, normal ROM, no rigidity, no stridor, no thyromegaly Carotids: bilateral: upstroke normal Thyroid: bilateral: normal size - Respiratory Respiratory: bilateral: CTA, negative: diminished, dullness, rales, rhonchi, wheezing, prolonged expiration, prolonged inspiration - Cardiovascular Rhythm: regular Heart sounds: normal: S1, S2 Abnormal Heart Sounds: no systolic murmur, no diastolic murmur, no S3 Gallop, no S4 Gallop - Gastrointestinal General gastrointestinal: normal bowel sounds, soft, no splenomegaly, no tenderness, no umbilical hernia, no ventral hernia - Integumentary Integumentary: normal, normal turgor Dressing in place to the right knee with no breakthrough drainage or bleeding - Neurologic Neurologic: CNII-XII intact - Musculoskeletal Musculoskeletal: strength equal bilaterally, right sided weakness - Psychiatric Psychiatric: A&O x's 3, appropriate affect, intact judgment & insight - Labs CBC & Chem 7: 04/03/19 06:54 Assessment and Plan Plan: 1. Post operative day #2 status post right total knee arthroplasty. Patient was instructed to use the incentive spirometery to reduce the incidence of atelectasis and healthcare associated pneumonia. Continue with DVT prophylaxis, continue with the physical therapy and pain management as outlined by orthopedic surgery. 2. Hypothyroidism. Continue patient on Synthroid 125 g orally once every day. 3. Constipation. Continue current bowel care. 4. Osteoarthritis. Continue current pain management. 5. Post op acute blood loss anemia expected outcome of surgery. Monitor the patient's CBC keep her hemoglobin greater than 10. 6. DVT prophylaxis. Aspirin 325 mg orally twice every day. Discharge plan: Home with [facility] on Sunday Impression and plan of care have been directed as dictated by the signing physician. Denise Okeefe nurse practitioner acting as scribe for signing physician.
[2019-04-04 20:19] VITALS: RESP 16
[2019-04-04] MEDS: SENNOSIDES-DOCUSATE SODIUM 1 EACH TAB PO SCH (21:28)
[2019-04-05] MEDS: HYDROcodone/APAP 10-325MG 1 EACH TAB PO PRN ×3 (03:01→14:12)
[2019-04-05] MEDS: LACTATED RINGERS 1,000 ML IV SCH (03:02)
[2019-04-05] MEDS: LEVOTHYROXINE 125 MCG TAB PO SCH (05:56)
[2019-04-05 06:43] LABS: Basophils % (A) 0 %; Eosinophils # (A) 0.1 k/uL (0-0.7); Eosinophils % (A) 2 %; HCT 30.5 % (34.0-46.0); HGB 10.1 gm/dL (11.4-16.0); Lymphocytes # (A) 1.3 k/uL (1.0-4.8); Lymphocytes % (A) 20 %; MCH 29.2 pg (25.0-35.0); MCHC 33.2 g/dL (31.0-37.0); MCV 88.1 fL (80.0-100.0); Mean Platelet Volume 7.1; Monocytes # (A) 0.4 k/uL (0-1.0); Monocytes % (A) 6 %; Neutrophils # (A) 4.6 k/uL (1.3-7.7); Neutrophils % (A) 71 %; Platelet Count 187 k/uL (150-450); RBC 3.46 m/uL (3.80-5.40); RDW 13.7 % (11.5-15.5); WBC 6.4 k/uL (3.8-10.6)
[2019-04-05] MEDS: ASPIRIN 325 MG TAB PO SCH (08:43)
[2019-04-05 09:09] VITALS: BP 124/78; PULSE 83; TEMP 98.4
--- NOTE | 2019-04-05 11:55 | P.DS ---
Providers Date of admission: 04/04/19 14:01 Expected date of discharge: 04/05/19 Attending physician: Doron Garrett Consults: 04/02/19 13:36 Consult Physician Routine Consulting Provider: Elvin Centeno Reason/Comments: post op medical management Do you want consulting provider notified?: Yes Primary care physician: Elvin Centeno - Discharge Diagnosis(es) (1) Right knee pain Current Visit: Yes Status: Acute (2) Hypothyroidism Current Visit: Yes Status: Acute (3) Osteoarthritis of right knee Current Visit: Yes Status: Acute (4) Status post total right knee replacement Current Visit: Yes Status: Acute Priority: Medium Hospital Course: This is a pleasant 63-year-old female who presented with right knee osteoarthritis who failed outpatient conservative therapy. She was admitted for a right total knee arthroplasty. The patient tolerated the procedure well and did well postoperatively. She has been able to increase her ambulation. She is weightbearing as tolerated on right lower extremity. She has been using a walker as needed. She is planning to be discharged home with home care. She feels she is ready for discharge today. Condition on day of discharge stable. Patient will be discharged home. Patient was cleared preoperatively for surgery by Dr. Centeno. Patient currently denies any nausea, vomiting, fever, or chills. Patient is eating and voiding freely without difficulty. Right knee incision remains clean, dry, intact. We discussed if the incision continues to be dry over the next 48 hours, she may shower without a dressing intact over the right knee on 04/07/2019. She is encouraged to elevate and apply ice over the right knee for comfort support as needed. Patient has a medical history of hypothyroidism. She has an On-Q pain pump intact as placed by anesthesia. We will plan have this discontinued prior to discharge home. Patient given a prescription for [place] 10 mg/325 mg 1 tab every 6 hours as needed for pain, dispensed #30 at discharge. MAPS has been reviewed. Patient is also given a prescription for aspirin 325 mg 1 tab twice a day dispensed #60. Patient should take this medication until completion of the prescription. Patient may resume other previously prescribed home medications. Patient will plan to follow up with Dr. Garrett as scheduled on 04/11/2019 Physical Exam Right Total Knee Arthroplasty: Status post surgical day number 3 Patient is awake, alert, and oriented 3 Vital signs stable Good chest excursion with deep inspiration and expiration No signs or symptoms of DVT; no calf pain Dressing is clean, dry, and intact; no erythema, purulence, or signs of infection No significant pain with palpation of the surgical site over the right knee Patient has full foot and ankle motion without difficulty bilateral lower extremities Dorsiflexion, plantar flexion, and extensor hallucis longus positive sustained bilaterally Neurovascular status left lower extremity intact Capillary refill lower extremity is bilaterally less than 2 seconds Procedures: Right total knee arthroplasty Patient Condition at Discharge: Stable Plan - Discharge Summary Discharge Rx Participant: Yes New Discharge Prescriptions: New HYDROcodone/APAP 10-325MG [[place] 10-325] 1 tab PO Q6HR PRN 7 Days #30 tab PRN Reason: Pain Aspirin 325 mg PO BID 30 Days #60 tab No Action Levothyroxine Sodium [Synthroid] 125 mcg PO DAILY Discharge Medication List Levothyroxine Sodium [Synthroid] 125 mcg PO DAILY 06/19/17 [History] Aspirin 325 mg PO BID 30 Days #60 tab 04/04/19 [Rx] HYDROcodone/APAP 10-325MG [[place] 10-325] 1 tab PO Q6HR PRN 7 Days #30 tab 04/04/19 [Rx] Follow up Appointment(s)/Referral(s): [facility], [NON-STAFF] - As Needed Elvin Centeno MD [Primary Care Provider] - 1 Week Doron Garrett MD [STAFF PHYSICIAN] - 04/11/19 1:15 pm Activity/Diet/Wound Care/Special Instructions: Keep wound clean and dry Take meds as directed Follow-up with Dr. Garrett in office Weight bear as tolerated May shower in 48 days if no bleeding Discharge Disposition: HOME SELF-CARE
--- NOTE | 2019-04-05 13:05 | P.PN ---
Subjective Progress Note Date: 04/05/19 This is a 63-year-old female one of Dr. Centeno with a previous medical history significant for hypothyroidism as well as ostial arthritis underwent right total knee arthroplasty that was done successfully by Dr. Garrett and we were asked to see the patient for medical management. Patient is sitting up in bed in no apparent distress she denies any chest pain, shortness breath she has no abdominal pain, she denies any nausea or vomiting. 04/03: Patient was hypotensive earlier with a little lightheadedness. She is status post fluid resuscitation. She states her pain is tolerable. Adductor canal catheter in place for pain control. She has not had a bowel movement this point. Repeat lab work this morning shows white count of 10.7, hemoglobin 10.0. Patient is planning to return home with [facility]. Most likely she will be ready by tomorrow. 04/04: Patient states that her pain has been hurting a lot less now in a #6 with medications. Patient states she feels a little lightheaded when sitting up. She is not eating very much. She has not had a bowel movement. She is urinati ng without difficulty. Abdomen slightly distended. She has not worked with physical therapy yet this morning. She is afebrile, heart rate 82, blood pressure 129/85, pulse ox 85% on room air. 04/05: Patient states that her pain is under control. Patient denies any lightheadedness or dizziness upon position change. Appetite has slowly began to increase. Has not had a bowel movement meant at this time. She remains afebrile vital signs remained stable. Hemoglobin 10.1. Discussed with patient to take iron daily. Discussed with patient the importance of stool softeners and to take until positive bowel movement. Review of systems Constitutional: Denies anorexia, Denies chronic headaches, Denies malaise, Denies weakness, Denies weight gain Eyes: denies blurred vision, denies bulging eye Ears: deny: decreased hearing Ears, nose, mouth and throat: Denies dysphagia, Denies neck lump, Denies sore throat Cardiovascular: Denies chest pain, Denies claudication, Denies decreased exercise tolerance, Denies leg edema, Denies rapid heart beat, Denies shortness of breath, Denies syncope, reports lightheadedness Respiratory: Denies congestion, Denies cough with sputum, Denies home oxygen, De nies sleep apnea, Denies snoring, Denies wheezing Gastrointestinal: Denies abdominal pain, Denies BRBPR, Denies change in bowel habits, Denies excessive gas, Denies loss of appetite, Denies melena, Denies nausea, Denies vomiting Genitourinary: Denies dysuria, Denies hematuria Musculoskeletal: Denies myalgias Musculoskeletal: right: knee pain, knee stiffness, absent: ankle pain, ankle stiffness, ankle swelling, elbow pain, elbow stiffness, elbow swelling, foot pain, foot stiffness, foot swelling, hand pain, hand stiffness, hand swelling, hip pain, hip stiffness, hip swelling, knee swelling, shoulder pain, shoulder stiffness, shoulder swelling, wrist pain, wrist stiffness, wrist swelling Integumentary: Denies pruritus, Denies rash Neurological: Denies numbness, Denies weakness Psychiatric: Denies anxiety, Denies depression Endocrine: Denies fatigue, Denies weight change Objective - Vital Signs Vital signs: Vital Signs Temp 98.4 F 04/05/19 07:00 Pulse 83 04/05/19 07:00 Resp 16 04/05/19 07:00 BP 124/78 04/05/19 07:00 Pulse Ox 96 04/05/19 07:00 Intake & Output 04/04/19 04/05/19 04/05/19 18:59 06:59 18:59 Intake Total 590 Balance 590 Intake: Oral 590 Other: Voiding Method Toilet Toilet # Voids 4 2 - Exam General Appearance: Alert, cooperative, no distress, appears stated age. Neck HEENT: Supple, no lymphadenopathy, no thyroid enlargement, no carotid bruits. Lungs: Clear to auscultation without crackles or wheezes no rhonchi, no deformity. Chest Wall: Chest wall normal expansion with deep inspiration no tenderness and no deformity was found on exam, no costochondral pain or discomfort. Heart: Regular rate and rhythm, S1, S2 normal, no murmur, rub or gallop. Back: Symmetric, no curvature, ROM normal, no CVA tenderness. Abdomen: Soft, non-tender, no rebound or rigidity, no hepatosplenomegaly. Extremities: Extremities normal, atraumatic, no cyanosis or edema. Pulses: 2+ and symmetric. Skin: Skin color, texture, tugor normal, no rashes or lesions. Dressing in place to right knee with no break through drainage or bleeding. Neurologic: Alert oriented x3 cranial nerves II through XII intact, no motor deficit, no abnormal balance or gait - Labs CBC & Chem 7: 04/05/19 05:57 Labs: Abnormal Lab Results - Last 24 Hours (Table) 04/05/19 Range/Units 05:57 RBC 3.46 L (3.80-5.40) m/uL Hgb 10.1 L (11.4-16.0) gm/dL Hct 30.5 L (34.0-46.0) % Assessment and Plan Plan: 1. Post operative day #3 status post right total knee arthroplasty. Patient was instructed to use the incentive spirometery to reduce the incidence of atelectasis and healthcare associated pneumonia. Patient to be discharged from medical standpoint. Iron supplement daily. Continue with stool softener daily. Follow-up with surgeon and primary care provider in one week. 2. Hypothyroidism. Continue patient on Synthroid 125 g orally once every day. 3. Constipation. Continue current bowel care. 4. Osteoarthritis. Continue current pain management. 5. Post op acute blood loss anemia expected outcome of surgery. Hemoglobin today 10.1. 6. DVT prophylaxis. Aspirin 325 mg orally twice every day. Discharge plan: Discharge home today with "homecare Impression and plan of care have been directed as dictated by the signing physician. Tootie Wills nurse practitioner acting as scribe for signing physician.
[2019-04-05] MEDS: MULTIVITAMINS, THERA 1 EACH TAB PO SCH (14:12)
== END 2019-04-05 15:26 | disposition home or self-care (01) | DRG 470 ==
LOC: OR 11:46 → 4SSUR 17:34 → OR 23:50 → 4SSUR 23:50 → OBSVTOIN 04-04 14:01
PROVIDERS: ADMIT Orthopaedic Surgery Sports Medicine; ATTEND Orthopaedic Surgery Sports Medicine
PROC: 0SRC0J9 Replacement of Right Knee Joint with Synthetic Substitute, Cemented, Open Approach (ICD-10-PCS; principal; 2019-04-02 13:25)
DX: M17.11 Unilateral primary osteoarthritis, right knee (principal); D62 Acute posthemorrhagic anemia; E03.9 Hypothyroidism, unspecified; G89.18 Other acute postprocedural pain; K59.00 Constipation, unspecified; Z79.82 Long term (current) use of aspirin; Z79.890 Hormone replacement therapy; Z80.0 Family history of malignant neoplasm of digestive organs; Z82.49 Family history of ischemic heart disease and other diseases of the circulatory system; Z83.3 Family history of diabetes mellitus; Z90.49 Acquired absence of other specified parts of digestive tract; Z79.899 Other long term (current) drug therapy
CPT/HCPCS: 64448; 76942; 85025; 88300

== ENCOUNTER 2019-08-27 12:27 | Emergency (ER) | payer MEDICARE, BC ==
[2019-08-27] MEDS ORDERED: LIDOCAINE 1% INJ 10MG/ML (20 ML MDV) SQ ONE (12:50)
[2019-08-27] MEDS ORDERED: DIPH,PERTUS(ACELL)TETVAC-LF 0.5 ML VIAL IM ONE (12:50)
--- NOTE | 2019-08-27 14:06 | ED ---
Wound/Laceration HPI - General Chief Complaint: Wound/Laceration Stated Complaint: Fall, Leg Lac Time Seen by Provider: 08/27/19 12:39 Source: patient Mode of arrival: wheelchair Limitations: no limitations - Related Data Home Medications Medication Instructions Recorded Confirmed Levothyroxine Sodium [Synthroid] 125 mcg PO DAILY 06/19/17 04/02/19 Previous Rx's Medication Instructions Recorded Aspirin 325 mg PO BID 30 Days #60 tab 04/04/19 HYDROcodone/APAP 10-325MG [[place] 1 tab PO Q6HR PRN 7 Days #30 tab 04/04/19 10-325] Ferrous Sulfate [Iron] 325 mg PO DAILY #30 tablet 04/05/19 Sennosides-Docusate Sodium 2 each PO HS tab 04/05/19 [Senokot-S] Cephalexin [Keflex] 500 mg PO Q8HR 5 Days #15 cap 08/27/19 Allergies Allergy/AdvReac Type Severity Reaction Status Date / Time No Known Allergies Allergy Verified 08/27/19 12:32 Review of Systems ROS Statement: Those systems with pertinent positive or pertinent negative responses have been documented in the HPI. ROS Other: All systems not noted in ROS Statement are negative. Past Medical History Past Medical History: Osteoarthritis (OA), Thyroid Disorder Additional Past Medical History / Comment(s): . History of Any Multi-Drug Resistant Organisms: None Reported Past Surgical History: Section, Cholecystectomy, Orthopedic Surgery Additional Past Surgical History / Comment(s): ganglion cyst removed, colonoscopy, tear duct surg. right eye x 2, left breat biopsy Past Anesthesia/Blood Transfusion Reactions: Previous Problems w/ Anesthesia, Postoperative Nausea & Vomiting (PONV) Additional Past Anesthesia/Blood Transfusion Reaction / Comment(s): "woke up during twilight anesthesia" Past Psychological History: No Psychological Hx Reported Smoking Status: Never smoker Past Alcohol Use History: Occasional Past Drug Use History: None Reported - Past Family History Father Family Medical History: Cancer (Father at age of 74 from esophageal cancer he also felt off the back of the truck with significant injury.) Mother Family Medical History: Coronary Artery Disease (CAD) (Mother is 84-year-old with a history of aortic valve replacement.) Brother(s) Family Medical History: No Reported History (Patient has one brother no major medical problems .) Sister(s) Family Medical History: Diabetes Mellitus (Patient has 4 sisters one of them with diabetes mellitus type 2.) Son(s) Family Medical History: No Reported History (Patient has 2 sons no major medical problems.) General Exam - General Exam Comments Initial Comments: General: The patient is awake and alert, in no distress, and does not appear acutely ill. Eye: Pupils are equal, round and reactive to light, extra-ocular movements are intact. No nystagmus. There is normal conjunctiva bilaterally. No signs of icterus. Ears, nose, mouth and throat: There are moist mucous membranes and no oral lesions. Neck: The neck is supple, there is no tenderness or JVD. Cardiovascular: There is a regular rate and rhythm. No murmur, rub or gallop is appreciated. Respiratory: Lungs are clear to auscultation, respirations are non-labored, breath sounds are equal. No wheezes, stridor, rales, or rhonchi. Gastrointestinal: [Soft, non-distended, non-tender abdomen without masses or organomegaly noted. There is no rebound or guarding present. No CVA tenderness. Bowel sounds are unremarkable.] Musculoskeletal: Normal ROM, no tenderness. Strength 5/5. Sensation intact. Pulses equal bilaterally 2+. Neurological: A&O x 3. CN II-XII intact, There are no obvious motor or sensory deficits. Coordination appears grossly intact. Speech is normal. Skin: Skin is warm and dry and no rashes or lesions are noted. Psychiatric: Cooperative, appropriate mood & affect, normal judgment. Limitations: no limitations Course Vital Signs 08/27/19 08/27/19 12:28 14:20 Temperature 97.5 F L 97.1 F L Pulse Rate 76 83 Respiratory 18 16 Rate Blood Pressure 91/64 134/96 O2 Sat by Pulse 98 97 Oximetry Procedures - Laceration Laceration #1 Consent Obtained: verbal consent Indication: laceration Site: lower extremity Size (cm): 7 Description: avulsion, irregular Anesthetic Used: lidocaine 1% Anesthesia Technique: local infiltration Amount (mls): 3 Pre-repair: wound explored, irrigated extensively, deep structures intact Type of Sutures: nylon Size of Sutures: 4-0 Number of Sutures: 8 Technique: simple, interrupted Patient Tolerated Procedure: well, no complications Disposition Clinical Impression: Fall, Laceration of right lower leg Disposition: HOME SELF-CARE Condition: Good Instructions (If sedation given, give patient instructions): Care For Your Stitches (ED), Laceration (ED) Additional Instructions: Please use medication as discussed. Please follow-up with family doctor in the next 2 days, suture removal in 7-10 days. Please return to emergency room if the symptoms increase or worsen or for any other concerns. Prescriptions: Cephalexin [Keflex] 500 mg PO Q8HR 5 Days #15 cap Is patient prescribed a controlled substance at d/c from ED?: No Referrals: Elvin Centeno MD [Primary Care Provider] - 1-2 days Time of Disposition: 14:06
[2019-08-27 14:24] VITALS: BP 134/96; PULSE 83; RESP 16; TEMP 97.1
== END 2019-08-27 14:24 | disposition home or self-care (01) ==
LOC: EC 12:27
DX: S81.811A Laceration without foreign body, right lower leg, initial encounter (principal); E07.9 Disorder of thyroid, unspecified; Z79.890 Hormone replacement therapy; Z23 Encounter for immunization; W01.0XXA Fall on same level from slipping, tripping and stumbling without subsequent striking against object, initial encounter
CPT/HCPCS: 90715; 99282; 12002; 90471; J2001

== ENCOUNTER → 2021-02-03 | Outpatient (CLI) | payer MEDICARE, BC ==
--- NOTE | 2021-02-04 15:22 | BD ---
EXAMINATION TYPE: Axial Bone Density DATE OF EXAM: 02/03/2021 COMPARISON: 01/23/2019 CLINICAL HISTORY: osteoporosis. Height: 5 FT 2 IN Weight: 191 FRAX RISK QUESTIONS: Alcohol (3 or more units per day): NO Family History (Parent hip fracture): YES Glucocorticoids (More than 3mos): NO (Ex: prednisone, prednisolone, methylprednisolone, dexamethasone, and hydrocortisone). History of Fracture in Adulthood: YES Secondary Osteoporosis: 1. Type 1 Diabetes: NO 2. Hyperthyroidism: NO 3. Menopause before 45: NO 4. Malnutrition: NO 5. Chronic liver disease: NO Rheumatoid Arthritis: NO Current Tobacco Use: NO RISK FACTORS HISTORY OF: Surgery to Spine/Hip(right/left)/Wrist (right/left): NO Family History of Osteoporosis: YES Active: MILDLY Diet low in dairy products/other sources of calcium: NO Postmenopausal woman: AGE 49 Take estrogen and/or progesterone medications: NO Lost more than 2 inches in height since high school: NO Frequent falls: NO Poor Health: GOOD Hyperparathyroidism: NO Adrenal Insufficiency: NO MEDICATIONS: Thyroid Medications: YES Which medication: LEVOTHYROXINE How Long: OVER 20 YEARS Additional Medications: LEVOTHYROXINE, ALLLERGY MEDS NEEDED Additional History: GANGLION CYST REMOVED FROM RT WRIST EXAM MEASUREMENTS: Bone mineral densitometry was performed using the [email or web address] System. Bone mineral density as measured about the Lumbar spine is: ----- L1-L4(G/cm2): 1.128 T Score Values are as follows: ----- L2: -1.2 ----- L3: 0.6 ----- L4: 0.1 ----- L1-L4: -0.4 Bone mineral density has: DECREASED -1.5 % since study of: 2018 Bone mineral density about the R hip (g/cm2): 0.857 Bone mineral density about the L hip (g/cm2): 0.782 T Score values are as follows: -----R Neck: -1.3 -----L Neck: -1.8 -----R Total: -1.3 -----L Total: -1.8 Bone mineral density has: DECREASED -3.4 % since study of: 2018 IMPRESSION: osteopenia. NOTE: T-SCORE=SD OF THE YOUNG ADULT MEAN.
== END | disposition home or self-care (01) ==
LOC: RADBDWWP 16:12
PROVIDERS: ATTEND Internal Medicine Geriatric Medicine
DX: M85.89 Other specified disorders of bone density and structure, multiple sites (principal)
CPT/HCPCS: 77080

== ENCOUNTER → 2021-03-10 | Outpatient (CLI) | payer MEDICARE, BC ==
--- NOTE | 2021-03-10 13:57 | MM ---
Reason for exam: screening (asymptomatic). Last mammogram was performed 2 years and 2 months ago. History: Patient is postmenopausal. MG discontinued stereo core RT of the right breast, December 13, 2017. Benign left mammotome panel of the left breast, June 05, 2012. Took estrogen for 2 months beginning at age 53. Took progesterone for 2 months beginning at age 53. Physical Findings: A clinical breast exam by your physician is recommended on an annual basis and results should be correlated with mammographic findings. MG 3D Screening Mammo W/Cad Bilateral CC and MLO view(s) were taken. Prior study comparison: January 23, 2019, bilateral MG 3d screening mammo w/cad. November 16, 2017, right breast MG work up mamm w CAD RT. The breast tissue is heterogeneously dense. This may lower the sensitivity of mammography. Finding #1: There is a 4 mm round mass located 3 cm from the nipple in the slight upper outer quadrant, anterior position of the left breast. Finding #2: There are typically benign round calcifications in both breasts. New finding since January 23, 2019 and November 16, 2017. ASSESSMENT: Incomplete: need additional imaging evaluation, BI-RAD 0 RECOMMENDATION: Ultrasound of the left breast. [facility] will attempt to contact patient to return for ultrasound.
== END | disposition home or self-care (01) ==
LOC: RADMAMWWP 08:48
PROVIDERS: ATTEND Internal Medicine Geriatric Medicine
DX: Z12.31 Encounter for screening mammogram for malignant neoplasm of breast (principal); Z78.0 Asymptomatic menopausal state
CPT/HCPCS: 77063; 77067

== ENCOUNTER → 2021-03-31 | Outpatient (CLI) | payer MEDICARE, BC ==
--- NOTE | 2021-03-31 09:35 | USB ---
Reason for exam: additional evaluation requested from abnormal screening. History: Patient is postmenopausal. MG discontinued stereo core RT of the right breast, December 13, 2017. Benign left mammotome panel of the left breast, June 05, 2012. Took estrogen for 2 months beginning at age 53. Took progesterone for 2 months beginning at age 53. Physical Findings: Nurse did not find any significant physical abnormalities on exam. US Breast Workup Limited LT Left limited breast ultrasound including focal area of concern, retroareolar and axilla demonstrates a 0.4 x 0.3 x 0.3cm cyst with debris at 3 o'clock, likely mammographic correlate, 6 month follow up mammogram recommended. Scanned 12-3 o'clock. These results were verbally communicated with the patient and result sheet given to the patient on 03/31/21. ASSESSMENT: Probably benign, BI-RAD 3 RECOMMENDATION: Follow-up diagnostic mammogram of the left breast in 6 months.
== END | disposition home or self-care (01) ==
LOC: RADUSWWP 08:04
PROVIDERS: ATTEND Internal Medicine Geriatric Medicine
DX: R92.8 Other abnormal and inconclusive findings on diagnostic imaging of breast (principal); Z78.0 Asymptomatic menopausal state

== ENCOUNTER → 2023-05-03 | Outpatient (CLI) | payer MEDICARE, BC ==
--- NOTE | 2023-05-03 12:03 | BD ---
EXAMINATION TYPE: Axial Bone Density DATE OF EXAM: 05/03/2023 CLINICAL HISTORY: 67 years old Female. ICD-10 CODE: M81.0 AGE-RELATED OSTEOPOROSI Height: 62in Weight: 187lb FRAX RISK QUESTIONS: Family History (Parent hip fracture): yes History of Fracture in Adulthood: yes Secondary Osteoporosis: RISK FACTORS HISTORY OF: MEDICATIONS: Thyroid Medications: Which medication: Levothyroxine How Lon years EXAM MEASUREMENTS: Bone mineral densitometry was performed using the [employer] System. Bone mineral density as measured about the Lumbar spine is: ----- L1-L4(G/cm2): 1.078 T Score Values are as follows: ----- L1: -1.0 ----- L2: -1.5 ----- L3: -0.6 ----- L4: -0.4 ----- L1-L4: -0.9 Z Score Values are as follows: ----- L1: -0.1 ----- L2: -0.5 ----- L3: 0.4 ----- L4: 0.5 ----- L1-L4: 0.1 Bone mineral density has: Decreased -4.4% since study of: 02-03-21 Bone mineral density about the R hip (g/cm2): 0.797 Bone mineral density about the L hip (g/cm2): 0.776 T Score values are as follows: -----R Neck: -1.5 -----L Neck: -1.6 -----R Total: -1.7 -----L Total: -1.8 Z Score values are as follows: -----R Neck: -0.4 -----L Neck: -0.4 -----R Total: -0.8 -----L Total: -0.9 Bone mineral density has: Decreased -3.1% since study of: 02-03-21 FRAX%s: The graph provided illustrates a 24.4% chance for a major osteoporotic fx and a 3.5% chance f or the hips probability for fx in 10 years time. IMPRESSION: Osteopenia (T Score between -2.5 and -1). There is slightly increased risk of fracture and the patient may be considered for treatment. Re-Screen 2-5 years. NOTE: T-SCORE=SD OF THE YOUNG ADULT MEAN.
--- NOTE | 2023-05-04 12:36 | MM ---
Reason for Exam: Screening (asymptomatic). Last screening mammogram was performed 12 month(s) ago. Patient History: Menarche at age 12. First Full-Term at age 24. Postmenopausal. Estrogen for 2 months from age 53 until age 53. Progesterone for 2 months from age 53 until age 53. 06/05/2012, Benign Core Biopsy on the left side. 12/13/2017, MG discontinued stereo core RT on the right side. Risk Values: Suzanne 5 year model risk: 2.2%. NCI Lifetime model risk: 7.2%. Prior Study Comparison: 03/10/2021 Bilateral Screening Mammogram, [facility]. 04/28/2022 Bilateral MG 3D screening mammo w/cad, [facility]. 05/04/2022 Bilateral MG 3D work up w/cad [facility], [facility]. Tissue Density: The breast tissue is heterogeneously dense. This may lower the sensitivity of mammography. Findings: Analyzed By CAD. There is no suspicious group of microcalcifications or new suspicious mass in either breast. Previous biopsy marker noted in the left breast. Benign calcifications noted. A chronic nodularity right breast stable. There is an asymmetric density in the subareolar portion of the right breast for which spot compression views recommended. Overall Assessment: Incomplete: need additional imaging evaluation, BI-RAD 0 Management: Special View Mammogram of the right breast. . Patient should continue monthly self-breast exams. A clinical breast exam by your physician is recommended on an annual basis. This exam should not preclude additional follow-up of suspicious palpable abnormalities. Note on Suzanne scores and lifetime risk: 1. A Suzanne score greater than 3% is considered moderate risk. If this is the case, consider specialist referral to assess eligibility for a risk reducing agent. 2. If overall lifetime risk for the development of breast cancer is 20% or higher, the patient may qualify for future screening with alternating mammogram and breast MRI. Electronically signed and approved by: Elvin Linares M.D. Radiologis
== END | disposition home or self-care (01) ==
LOC: RADMAMWWP 11:04
PROVIDERS: ATTEND Internal Medicine Geriatric Medicine
DX: Z12.31 Encounter for screening mammogram for malignant neoplasm of breast (principal); M81.0 Age-related osteoporosis without current pathological fracture; M85.89 Other specified disorders of bone density and structure, multiple sites; Z78.0 Asymptomatic menopausal state
CPT/HCPCS: 77063; 77067; 77080

== ENCOUNTER → 2023-05-11 | Outpatient (CLI) | payer MEDICARE, BC ==
--- NOTE | 2023-05-11 13:47 | MM ---
Reason for Exam: Additional evaluation requested from abnormal screening. Last screening mammogram was performed less than 1 month ago. Patient History: Menarche at age 12. First Full-Term at age 24. Postmenopausal. Estrogen for 2 months from age 53 until age 53. Progesterone for 2 months from age 53 until age 53. 06/05/2012, Benign Core Biopsy on the left side. 12/13/2017, MG discontinued stereo core RT on the right side. Risk Values: Suzanne 5 year model risk: 2.2%. NCI Lifetime model risk: 7.2%. Tissue Density: Right: There are scattered fibroglandular densities. Findings: Analyzed By CAD. The questioned medial focal asymmetry becomes less pronounced on additional views. No clear persisting abnormality on spot 3-D MLO or 3-D lateral views. Precautionary six-month follow-up recommended given appearance on the screening MLO view. Overall Assessment: Probably benign, BI-RAD 3 Management: Diagnostic Mammogram of the right breast in 6 months. . Results were given to the patient verbally at the time of exam. Patient should continue monthly self-breast exams. A clinical breast exam by your physician is recommended on an annual basis. This exam should not preclude additional follow-up of suspicious palpable abnormalities. Note on Suzanne scores and lifetime risk: 1. A Suzanne score greater than 3% is considered moderate risk. If this is the case, consider specialist referral to assess eligibility for a risk reducing agent. 2. If overall lifetime risk for the development of breast cancer is 20% or higher, the patient may qualify for future screening with alternating mammogram and breast MRI. Electronically signed and approved by: Stefan Alicia M.D. Radiologist
== END | disposition home or self-care (01) ==
LOC: RADMAMWWP 13:25
PROVIDERS: ATTEND Internal Medicine Geriatric Medicine
DX: R92.8 Other abnormal and inconclusive findings on diagnostic imaging of breast (principal); Z78.0 Asymptomatic menopausal state
CPT/HCPCS: 77065; G0279; 77061

== ENCOUNTER → 2023-12-12 | Outpatient (CLI) | payer MEDICARE, BC ==
--- NOTE | 2023-12-12 09:41 | MM ---
Reason for Exam: Follow-up at short interval from prior study. Last screening mammogram was performed 7 month(s) ago. Patient History: Menarche at age 12. First Full-Term at age 24. Postmenopausal. Estrogen for 2 months from age 53 until age 53. Progesterone for 2 months from age 53 until age 53. 06/05/2012, Benign Core Biopsy on the left side. 12/13/2017, MG discontinued stereo core RT on the right side. Risk Values: Suzanne 5 year model risk: 2.3%. NCI Lifetime model risk: 6.9%. Prior Study Comparison: 05/04/2022 Bilateral MG 3D work up w/cad [facility], [facility]. 05/03/2023 Bilateral MG 3D screening mammo w/cad, [facility]. 05/11/2023 Right MG 3D work up w/cad RT, [facility]. Tissue Density: Right: There are scattered areas of fibroglandular density. Findings: Analyzed By CAD. The pattern is symmetrical. No persistent suspicious density evident. There is a small focal asymmetry are stable prior study within the posterior upper quadrant. Scattered benign-appearing calcifications are present. No suspicious groups of microcalcifications, spiculated or lobular masses, architectural distortion or other secondary signs of malignancy are mammographically apparent. Overall Assessment: Benign, BI-RAD 2 Management: Screening Mammogram of both breasts in 6 months. A negative mammogram report should not preclude additional follow up of suspicious palpable abnormalities. Patient should continue monthly self breast exam. A clinical breast exam by your physician is recommended on an annual basis and results should be correlated with mammographic findings. Note on Suzanne scores and lifetime risk: 1. A Suzanne score greater than 3% is considered moderate risk. If this is the case, consider specialist referral to assess eligibility for a risk reducing agent. 2. If overall lifetime risk for the development of breast cancer is 20% or higher, the patient may qualify for future screening with alternating mammogram and breast MRI. [facility], , 12/12/2023 9:35 AM. Electronically signed and approved by: Edgar Gómez D.O. Radiologis
== END | disposition home or self-care (01) ==
LOC: RADMAMWWP 08:46
PROVIDERS: ATTEND Internal Medicine Geriatric Medicine
DX: R92.2 Inconclusive mammogram
CPT/HCPCS: 77061; 77065

== ENCOUNTER → 2024-08-01 | Outpatient (CLI) | payer MEDICARE, BC ==
--- NOTE | 2024-08-01 10:16 | MM ---
Reason for Exam: Screening (asymptomatic). Last mammogram was performed 1 year(s) and 3 month(s) ago. Patient History: Menarche at age 12. First Full-Term at age 24. Postmenopausal. Estrogen for 2 months from age 53 until age 53. Progesterone for 2 months from age 53 until age 53. 06/05/2012, Benign Core Biopsy on the left side. 12/13/2017, MG discontinued stereo core RT on the right side. Risk Values: Suzanne 5 year model risk: 2.3%. NCI Lifetime model risk: 6.9%. Prior Study Comparison: 05/03/2023 Bilateral MG 3D screening mammo w/cad, [facility]. 05/11/2023 Right MG 3D work up w/cad RT, [facility]. 12/12/2023 Right MG 3D diag mammo w/cad RT, [facility]. Tissue Density: There are scattered areas of fibroglandular density. Findings: Analyzed By CAD. Left breast biopsy clip. Right breast: There is no suspicious group of microcalcifications or new suspicious mass. Left breast: There is no suspicious group of microcalcifications or new suspicious mass. Overall Assessment: Negative, BI-RAD 1 Management: Screening Mammogram of both breasts in [address] [facility] will attempt to contact patient to return for supplemental views and ultrasound if indicated. Patient should continue monthly self-breast exams. A clinical breast exam by your physician is recommended on an annual basis. This exam should not preclude additional follow-up of suspicious palpable abnormalities. Note on Suzanne scores and lifetime risk: 1. A Suzanne score greater than 3% is considered moderate risk. If this is the case, consider specialist referral to assess eligibility for a risk reducing agent. 2. If overall lifetime risk for the development of breast cancer is 20% or higher, the patient may qualify for future screening with alternating mammogram and breast MRI. [facility], , 08/01/2024 10:04 AM. Electronically signed and approved by: Hiram Noland DO
== END | disposition home or self-care (01) ==
LOC: RADMAMWWP 08:48
PROVIDERS: ATTEND Internal Medicine Geriatric Medicine
DX: Z12.31 Encounter for screening mammogram for malignant neoplasm of breast (principal); R92.323 Mammographic fibroglandular density, bilateral breasts; Z78.0 Asymptomatic menopausal state
CPT/HCPCS: 77063; 77067